=== PATIENT | female | born 1990 | race Caucasian/White ===

== ENCOUNTER 2022-07-04 18:51 | Emergency (ER) | payer OTHER ==
[~2022-07-04] VITALS: Ht 160 cm; Wt 46.3 kg
[2022-07-04 20:04] LABS: HEMATOCRIT 37.5 % (31.2-41.9); MEAN CORPUSCULAR HEMOGLOBIN 32.5 uug (24.7-32.8); MEAN CORPUSCULAR VOLUME 96.3 fL (75.5-95.3); PLATELET COUNT (AUTO) 226 K/uL (179-408)
--- NOTE | 2022-07-04 20:15 | NUR ---
A/O x 4. NAD noted. Amublatory with steady gait.
--- NOTE | 2022-07-04 20:20 | NUR ---
Dr. Alonzo at bedside. MSE in progress.
[2022-07-04 20:28] LABS: BILIRUBIN,DIRECT 0.1 mg/dL (0.0-0.2); BILIRUBIN,TOTAL 0.5 mg/dL (0.2-1.0); CREATININE 0.7 mg/dL (0.6-1.3); POTASSIUM 3.6 mmol/L (3.5-5.1); TOTAL PROTEIN, SERUM 7.3 g/dL (6.4-8.2)
--- NOTE | 2022-07-04 20:30 | NUR ---
US at bedside.
--- NOTE | 2022-07-04 22:15 | NUR ---
Patient discharged to home in stable condition. A/O x 4. NAD noted. Amublatory with steady gait. All belongings with patient. Written and verbal after care instructions given.Patient verbalizes understanding of instructions. Stressed follow up or return to ER for worsening s/s.
[2022-07-04 22:19] VITALS: BP 120/78
== END 2022-07-04 22:15 | disposition home or self-care (01) ==
LOC: ER 18:51
DX: O20.0 Threatened abortion (principal); Z3A.01 Less than 8 weeks gestation of pregnancy
CPT/HCPCS: 36415; 76856; 85025; 85610; 85730; 86850; 86900; 86901; A4663